=== PATIENT | male | born 1995 | race African-American/Black ===

== ENCOUNTER 2022-05-22 08:43 | Emergency (ER) | payer SELFPAY ==
[~2022-05-22] VITALS: Ht 170.2 cm; Wt 104.5 kg
[~2022-05-22 08:43] MED LIST: NO HOME MEDICATIONS; VENTOLIN0.09 MG IH
[2022-05-22 08:51] VITALS: TEMP 98.6
[2022-05-22 09:41] VITALS: BP 151/101; PULSE 84
== END 2022-05-22 09:41 | disposition home or self-care (01) ==
LOC: COL.ER 08:43
DX: S93.402A Sprain of unspecified ligament of left ankle, initial encounter (principal); Z28.310 Unvaccinated for COVID-19; V00.831A Fall from motorized mobility scooter, initial encounter; Y93.I9 Activity, other involving external motion; Y92.410 Unspecified street and highway as the place of occurrence of the external cause
CPT/HCPCS: J1885